=== PATIENT | male | born 1995 | race Caucasian/White ===

== ENCOUNTER 2017-02-03 09:57 | Day surgery (SDC) | payer OTHER ==
[~2017-02-03] VITALS: Ht 177.8 cm; Wt 79.4 kg
[~2017-02-03 09:57] MED LIST: [UNRECOGNIZED DRUG - CODE] PO
[2017-02-03] MEDS ORDERED: ceFAZolin SOD 1 GM in D5W MINI-BAG PLUS 50 ML IV ONE (10:15)
[2017-02-03] MEDS ORDERED: LR 1,000 ML IV SCH ×3 (10:15→14:15)
[2017-02-03] MEDS ORDERED: LR 1,000 ML IV ONE (10:15)
[2017-02-03] MEDS ORDERED: ONDANSETRON 4MG/2ML VIAL (J2405) As Ordered ONE (10:42)
[2017-02-03] MEDS ORDERED: LIDOCAINE 2% INJ 100 MG/5 ML SDV (FOR ANES.) As Ordered ONE (10:42)
[2017-02-03] MEDS ORDERED: MIDAZOLAM INJ 2 MG/2 ML VIAL (J2250) As Ordered ONE (10:42)
[2017-02-03] MEDS ORDERED: PROPOFOL 200 MG/20 ML VIAL As Ordered ONE (10:42)
[2017-02-03] MEDS ORDERED: fentaNYL 100 MCG/2 ML INJECTION (J3010) As Ordered ONE (10:42)
[2017-02-03] MEDS ORDERED: ROCURONIUM BROMIDE 50 MG/5 ML VIAL/SYRINGE As Ordered ONE (10:42)
[2017-02-03] MEDS ORDERED: BUPIVACAINE/EPIN 0.25% 30 ML VIAL As Ordered ONE (12:24)
[2017-02-03] MEDS ORDERED: GLYCOPYRROLATE INJ 0.2 MG/ML 2 ML VIAL As Ordered ONE (13:49)
[2017-02-03] MEDS ORDERED: NEOSTIGMINE 1MG/ML 5 ML SYRINGE (J2710) As Ordered ONE (13:49)
--- NOTE | 2017-02-03 14:08 | RO ---
DATE OF PROCEDURE: 02/03/2017 PREOPERATIVE DIAGNOSIS: Umbilical/epigastric hernia. POSTOPERATIVE DIAGNOSIS: Umbilical/epigastric hernia. PROCEDURE: Repair of epigastric hernia above the umbilicus. SURGEON: Dr. Luis Miguel Germain DIRECTOR OF PHARMACY: ANESTHESIA: General endotracheal anesthesia. ESTIMATED BLOOD LOSS: Minimal. FLUIDS: Crystalloid. BRIEF PROCEDURE SUMMARY: The patient was brought to the operating room and given general anesthesia. After adequate anesthesia and preoperative antibiotics were given, the patient was prepped and draped in a sterile fashion. Next, a small midline incision was made with skin knife. Electrocautery was used cut through dermis and underlying subcutaneous tissue down to the hernia sac that was appreciated. There was a larger one and then a smaller one just inferior to this. This was transected at the level of the fascia and with some preperitoneal fat that was in this area. The fascial defect was about 6 mm in size. Just next to this was an additional 3 mm fascial defect and then inferior to this on the left-hand side there was an additional 4 mm defect that was about a centimeter away from the original additional fascial defects. No other fascial defects were appreciated in this area. The fascial defects were closed with [id number] #0 Ethilon. They approximated quite nicely. The wound was copiously irrigated with saline. The subcutaneous tissue was brought together with #3-0 Vicryl and #4-0 Vicryl was used to approximate the skin. Steri-Strips and a dry sterile dressing was applied. The patient was awakened, extubated and brought to the recovery room awake, alert and hemodynamically stable. Sponge and needle counts were correct times two.
[2017-02-03] MEDS ORDERED: MORPHINE 2 MG/ML 1ML SYRINGE IV PRN (14:15)
[2017-02-03] MEDS ORDERED: NORCO, ANEXSIA 5/325MG TABLET (HYDROcodone/ACETAMINOPHEN) PO PRN ×2 (14:15→15:00)
[2017-02-03] MEDS ORDERED: ONDANSETRON 4MG/2ML VIAL (J2405) IV PRN ×2 (14:15)
[2017-02-03] MEDS ORDERED: fentaNYL 100 MCG/2 ML INJECTION (J3010) IV PRN (14:15)
[2017-02-03] MEDS ORDERED: KETOROLAC 30 MG/ML VIAL (J1885) IV SCH (15:00)
[2017-02-03 16:00] VITALS: BP 133/80
== END 2017-02-03 16:33 | disposition home or self-care (01) ==
LOC: M SDC 09:57
PROVIDERS: ATTEND Surgery
DX: K42.9 Umbilical hernia without obstruction or gangrene (principal); K43.9 Ventral hernia without obstruction or gangrene; Z79.899 Other long term (current) drug therapy
CPT/HCPCS: 49570; 88302; J0690; J2250; J2405; J2710; J3010

== ENCOUNTER 2017-03-29 23:55 | Emergency (ER) | payer OTHER ==
[2017-03-30] MEDS ORDERED: dexameTHASONE 20 MG/5 ML VIAL (J1100) IV ONE (00:45)
[2017-03-30] MEDS ORDERED: NS 1,000 ML IV ONE (00:45)
[2017-03-30 01:04] LABS: BASO # 0.1 10^3/uL (0.0-0.2); BASO % 0.3 % (0.0-1.0); EOS # 0.3 10^3/uL (0.0-0.50); EOS % 1.8 % (0.0-3.0); IMMATURE GRANULOCYTE % 0.3 % (0-0); LYMPH # 2.5 10^3/uL (1.5-6.5); MEAN CORPUSCULAR HEMOGLOBIN 29.7 pg (27.0-33.0); MEAN CORPUSCULAR HGB CONC 36.3 g/dl (32.0-36.5); MEAN CORPUSCULAR VOLUME 81.8 fl (80.0-96.0); MONO # 1.1 10^3/uL (0.0-0.8); NEUTROPHILS # 11.8 10^3/uL (1.8-7.7); NEUTROPHILS % 74.6 % (36.0-66.0); PLATELET COUNT, AUTOMATED 310 10^3/uL (150-450); RED CELL DISTRIBUTION WIDTH 12.7 % (11.5-14.5); WHITE BLOOD COUNT 15.8 10^3/uL (4.0-10.0)
[2017-03-30 01:12] LABS: ANION GAP 7 MEQ/L (8-16); BLOOD UREA NITROGEN 16 MG/DL (7-18); CALCIUM LEVEL 9.2 MG/DL (8.5-10.1); CARBON DIOXIDE LEVEL 29 MEQ/L (21-32); CHLORIDE LEVEL 103 MEQ/L (98-107); GLOMERULAR FILTRATION RATE > 60.0 (>60); GLUCOSE, FASTING 101 MG/DL (70-105); POTASSIUM SERUM 4.1 MEQ/L (3.5-5.1); SODIUM LEVEL 139 MEQ/L (136-145)
[2017-03-30] MEDS ORDERED: ISOVUE-370 76% 100ML VIAL (Q9967) As Ordered ONE (01:19)
--- NOTE | 2017-03-30 02:10 | REPUSA ---
CLINICAL HISTORY: Suspected left peritonsillar abscess formation. TECHNIQUE: Multiple axial CT images were obtained through the neck with IV contrast material. MPR cor onal and sagittal sequences were obtained. COMMENTS: Diffuse hypertrophy of the adenoids. Enlarged palatine tonsils. Left peritonsillar phlegmonous changes. The above described phlegmonous changes/free fluid extending to the left submandibular fat surroundin g the left submandibular gland. No drainable abscess formation. Bilateral mildly enlarged cervical lymph nodes with the largest measuring 1.3 cm. The piriform sinuses are normal. There is no supra or infraglottic laryngeal mass. The proximal trach ea is normal. There is no paravertebral soft tissue mass. The remaining salivary glands are normal. The paravertebral soft tissue space is normal. Limited images through the posterior fossa demonstrate no evidence for tonsilar herniation. Evaluation of the visualized lung apices reveals no evidence for abnormality. IMPRESSION: Diffuse hypertrophy of adenoids. Tonsillitis. Left peritonsillar phlegmonous changes. No drainable abscess formation. Reactive changes of the left submandibular sialadenitis. No drainable abscess formation. Mass effect on the pharyngeal air passage. No critical airway narrowing. Thank you for your kind referral of this patient.
[2017-03-30] MEDS ORDERED: CLEO300C2 PO (02:42)
[2017-03-30] MEDS ORDERED: PRED20TA PO (02:42)
[2017-03-30] MEDS ORDERED: LIDOCAINE VISCOUS 2% SOLN 15ML UDC SS ONE (02:45)
[2017-03-30] MEDS ORDERED: CLINDAMYCIN 900 MG in APPROPRIATE DILUENT 1 EA IV ONE (02:45)
[2017-03-30 03:14] VITALS: BP 144/81
== END 2017-03-30 03:40 | disposition home or self-care (01) ==
LOC: M ED 23:55
DX: J03.90 Acute tonsillitis, unspecified (principal); Z79.899 Other long term (current) drug therapy; Z86.19 Personal history of other infectious and parasitic diseases
CPT/HCPCS: 70491; 80048; 85025; 86140; 87880; 96374; 96375; 99284; J1100; Q9967

== ENCOUNTER 2017-12-29 01:44 | Emergency (ER) | payer OTHER ==
[2017-12-29] MEDS: dexameTHASONE 4 MG/ML 1ML VIAL (J1100) PO (04:57)
[2017-12-29] MEDS: IBUPROFEN 100 MG/5 ML SUSP UDC DYE FREE PO (05:00)
[2017-12-29] MEDS ORDERED: LIDOCAINE 1% MDV 20ML VIAL As Ordered (05:00)
[2017-12-29] MEDS: cefTRIAXone SOD 1 GM VIAL (J0696) IM (05:01)
== END 2017-12-29 06:21 | disposition home or self-care (01) ==
LOC: M ED 01:44
DX: J03.90 Acute tonsillitis, unspecified (principal)
CPT/HCPCS: J1100

== ENCOUNTER 2018-02-11 08:34 | Day surgery (SDC) | payer OTHER ==
[~2018-02-11 08:34] MED LIST changes: +LIDOCAINE 1% MDV 20ML VIAL SQ; +LR 1,000 ML IV; -[UNRECOGNIZED DRUG - CODE] PO
[2018-02-11] MEDS ORDERED: ONDANSETRON 4MG/2ML VIAL (J2405) As Ordered (11:50)
[2018-02-11] MEDS ORDERED: fentaNYL 250 MCG/5 ML INJECTION (J3010) As Ordered (11:50)
[2018-02-11] MEDS ORDERED: PROPOFOL 200 MG/20 ML VIAL As Ordered ×2 (11:50→11:51)
[2018-02-11] MEDS ORDERED: LIDOCAINE 2% INJ 100 MG/5 ML SDV (FOR ANES.) As Ordered (11:50)
[2018-02-11] MEDS ORDERED: ROCURONIUM BROMIDE 50 MG/5 ML VIAL As Ordered (11:50)
[2018-02-11] MEDS ORDERED: SUCCINYLCHOLINE 100 MG/5 ML SYRINGE (J0330) As Ordered (11:50)
[2018-02-11] MEDS ORDERED: MIDAZOLAM INJ 2 MG/2 ML VIAL (J2250) As Ordered (11:51)
[2018-02-11] MEDS ORDERED: ePHEDrine SULFATE 25 MG/5 ML(5MG/ML) SYRINGE As Ordered (11:51)
[2018-02-11] MEDS ORDERED: fentaNYL 100 MCG/2 ML INJECTION (J3010) IV (13:00)
[2018-02-11] MEDS ORDERED: LR 1,000 ML IV (13:00)
[2018-02-11] MEDS ORDERED: ONDANSETRON 4MG/2ML VIAL (J2405) IV (13:00)
[2018-02-11] MEDS ORDERED: METOCLOPRAMIDE INJ 10MG/2ML VIAL (J2765) IV (13:00)
[2018-02-11] MEDS: IBUPROFEN 800 MG TAB PO (13:05)
[2018-02-11] MEDS ORDERED: HYDROcodone/APAP LIQUID 7.5-325MG 15ML UDC (LORTAB ELIXIR) PO (13:15)
== END 2018-02-11 14:40 | disposition home or self-care (01) ==
LOC: M SDC 14:40
DX: J35.01 Chronic tonsillitis (principal); F17.290 Nicotine dependence, other tobacco product, uncomplicated
CPT/HCPCS: 42826